=== PATIENT | male | born 1985 | race Caucasian/White ===

== ENCOUNTER 2017-02-07 09:08 | Emergency (ER) | payer OTHER ==
[2017-02-07 09:15] VITALS: BP 120/73; PULSE 64; RESP 16; TEMP 97.4
[2017-02-07] MEDS ORDERED: GELATIN SPONGE,ABSORB (SMALL) 1 EACH SPONGE TOPICAL STA (09:22)
[2017-02-07] MEDS ORDERED: DIPH,PERTUS(ACELL)TETVAC-LF 0.5 ML VIAL IM ONE (09:22)
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
--- NOTE | 2017-02-07 09:55 | XR ---
EXAMINATION TYPE: XR finger RT DATE OF EXAM: 02/07/2017 COMPARISON: NONE HISTORY: Fifth digit injury and laceration. TECHNIQUE: 3 views of the right fifth digit were obtained. FINDINGS: No evidence of acute fracture or dislocation. Osseous mineralization is within normal limit s. Minimal soft tissue swelling is seen at the distal fifth digit overlying the distal phalanx. No sellers bcutaneous emphysema or radiopaque foreign body. IMPRESSION: Minimal focal soft tissue swelling at the distal aspect of the fifth right digit without evidence of acute fracture, dislocation or radiopaque foreign body.
== END 2017-02-07 10:14 | disposition home or self-care (01) ==
LOC: EC 09:08
DX: S61.206A Unspecified open wound of right little finger without damage to nail, initial encounter (principal); Z79.01 Long term (current) use of anticoagulants; Z79.899 Other long term (current) drug therapy; Z23 Encounter for immunization; W23.1XXA Caught, crushed, jammed, or pinched between stationary objects, initial encounter; Y92.69 Other specified industrial and construction area as the place of occurrence of the external cause; Y99.0 Civilian activity done for income or pay
CPT/HCPCS: 90471; 90715; 99283

== ENCOUNTER → 2018-03-13 | Outpatient (CLI) | payer BC ==
--- NOTE | 2018-03-13 08:02 | US ---
EXAMINATION TYPE: US kidneys/renal and bladder DATE OF EXAM: 03/13/2018 COMPARISON: NONE CLINICAL HISTORY: R31.9 Hematuria. Pt states microscopic hematuria, pt on Warfarin since age 14 due t o heart valve surgery EXAM MEASUREMENTS: Right Kidney: 13.7 x 5.2 x 5.7 cm Left Kidney: 13.3 x 6.5 x 7.0 cm Right Kidney: wnl Left Kidney: wnl, lower pole gassed out Bladder: wnl Bilateral Jets seen: Yes Incidental finding, liver grossly heterogeneous There is no evidence for hydronephrosis at this point in time. No nephrolithiasis is seen. No timo s are identified. The urinary bladder is poorly distended. Bilateral ureteral jets are seen. Adjacent liver is markedly heterogeneously hyperechoic in appearance. Spleen is heterogeneous and upp er limits of normal in size at 12.8 cm. IMPRESSION: No suspicious finding seen to account for patient's symptoms of hematuria. Note is made of heterogene ous hyperechoic appearance of liver which could reflect product of diffuse fatty infiltration or unde rlying hepatocellular disease. Clinical and liver lab correlation advised.
== END | disposition home or self-care (01) ==
LOC: RADUSWWP 07:30
PROVIDERS: ATTEND Urology
DX: R31.9 Hematuria, unspecified (principal)
CPT/HCPCS: 76770

== ENCOUNTER → 2020-07-06 | Outpatient (CLI) | payer OTHER ==
[2020-07-06 14:44] LABS: Basophils # (A) 0.05 X 10*3/uL (0.00-0.10); Basophils % (A) 0.9 %; Eosinophils # (A) 0.22 X 10*3/uL (0.04-0.35); Eosinophils % (A) 3.8 %; HCT 47.8 % (39.6-50.0); HGB 16.7 g/dL (13.0-17.0); Lymphocytes # (A) 1.62 X 10*3/uL (0.90-5.00); Lymphocytes % (A) 27.7 %; MCH 32.6 pg (27.0-32.0); MCHC 34.9 g/dL (32.0-37.0); MCV 93.4 fL (80.0-97.0); Mean Platelet Volume 11.3 fL (9.5-12.2); Monocytes # (A) 0.77 X 10*3/uL (0.20-1.00); Monocytes % (A) 13.2 %; Neutrophils # (A) 3.17 X 10*3/uL (1.80-7.70); Neutrophils % (A) 54.1 %; Platelet Count 184 X 10*3/uL (140-440); RBC 5.12 X 10*6/uL (4.40-5.60); RDW 12.8 % (11.5-14.5); WBC 5.85 X 10*3/uL (4.50-10.00)
[2020-07-06 15:10] LABS: INR 2.44 (0.90-1.11); Prothrombin Time 25.1 sec (9.9-11.9)
[2020-07-06 18:30] LABS: Hemoglobin A1C 4.4 % (4.0-6.0)
[2020-07-07 03:29] LABS: Chol/HDL Ratio 3.29; LDL Cholesterol,Calculated 76.8 mg/dL (0.0-131.0); VLDL Calculation 19.2 mg/dL (5.00-40.00)
[2020-07-07 03:30] LABS: African American GFR (CKD) 129.6 (60.0-200.0); Anion Gap 4.5 mmol/L (4.00-12.00); BUN/Creat Ratio 12.22 Ratio (12.00-20.00); Calcium 9.3 mg/dL (8.7-10.3); Carbon Dioxide 28.5 mmol/L (21.6-31.8); Non-African American GFR(CKD) 111.8 (60.0-200.0); Potassium 4.3 mmol/L (3.5-5.5)
== END | disposition home or self-care (01) ==
LOC: LABWHC1 07:28
PROVIDERS: ATTEND Pediatrics Pediatric Cardiology
DX: Q23.0 Congenital stenosis of aortic valve (principal); Z95.2 Presence of prosthetic heart valve
CPT/HCPCS: 36415; 80048; 80061; 82306; 83036; 83880; 85025; 85610

== ENCOUNTER → 2021-08-10 | Outpatient (CLI) | payer MEDICARE, OTHER ==
[2021-08-10 10:42] LABS: Basophils # (A) 0.04 X 10*3/uL (0.00-0.10); Basophils % (A) 0.7 %; Eosinophils # (A) 0.21 X 10*3/uL (0.04-0.35); Eosinophils % (A) 3.7 %; HCT 47.7 % (39.6-50.0); HGB 16.6 g/dL (13.0-17.0); Immature Grans, Automated 0.4 %; Lymphocytes # (A) 2.01 X 10*3/uL (0.90-5.00); Lymphocytes % (A) 35.6 %; MCH 32.7 pg (27.0-32.0); MCHC 34.8 g/dL (32.0-37.0); MCV 93.9 fL (80.0-97.0); Mean Platelet Volume 11.2 fL (9.5-12.2); Monocytes # (A) 0.72 X 10*3/uL (0.20-1.00); Monocytes % (A) 12.8 %; NRBC Per 100 WBC 0 /100 WBCS (0.0-0.0); Neutrophils # (A) 2.64 X 10*3/uL (1.80-7.70); Neutrophils % (A) 46.8 %; Platelet Count 158 X 10*3/uL (140-440); RBC 5.08 X 10*6/uL (4.40-5.60); RDW 13.1 % (11.5-14.5); WBC 5.64 X 10*3/uL (4.50-10.00)
[2021-08-10 11:16] LABS: Chol/HDL Ratio 2.66 Ratio; LDL Cholesterol,Calculated 81.8 mg/dL (0.0-131.0)
[2021-08-10 11:30] LABS: African American GFR (CKD) 113.3 (60.0-200.0); Blood Urea Nitrogen 11.1 mg/dL (9.0-27.0); Calcium 9.3 mg/dL (8.7-10.3); Chloride 105 mmol/L (96-109); Glucose 89 mg/dL (70-110); Non-African American GFR(CKD) 97.8 (60.0-200.0); Potassium 4.4 mmol/L (3.5-5.5); Sodium 142 mmol/L (135-145)
[2021-08-10 11:52] LABS: INR 2.19 (0.90-1.11); Prothrombin Time 23.2 sec (9.9-11.9)
== END | disposition home or self-care (01) ==
LOC: LABWHC1 07:34
PROVIDERS: ATTEND Pediatrics Pediatric Cardiology
DX: Q23.1 Congenital insufficiency of aortic valve (principal)
CPT/HCPCS: 36415; 80048; 80061; 82306; 83036; 83880; 85025; 85610

== ENCOUNTER → 2023-12-18 | Outpatient (CLI) | payer MEDICARE, OTHER ==
[2023-12-18 20:30] LABS: INR 3.18 sec (0.93-1.11); Prothrombin Time 31.8 sec (9.9-11.9)
[2023-12-18 21:47] LABS: Hepatitis C IgG Antibody Nonreactive (Nonreactive)
[2023-12-18 21:54] LABS: Hepatitis B Surface AB- Quant 99.4 mIU/mL
== END | disposition home or self-care (01) ==
LOC: LABWHC1 15:02
DX: Z13.818 Encounter for screening for other digestive system disorders (principal)
CPT/HCPCS: 36415; 85610; 86704; 86706; 86803

== ENCOUNTER → 2024-01-03 | Outpatient (CLI) | payer MEDICARE, OTHER ==
[2024-01-03 18:47] LABS: INR 3.75 sec (0.93-1.11); Prothrombin Time 37.1 sec (9.9-11.9)
== END | disposition home or self-care (01) ==
LOC: LABWHC1 14:22
CPT/HCPCS: 36415; 85610